=== PATIENT | male | born 1960 | race Caucasian/White ===

== ENCOUNTER 2018-11-21 15:55 | Emergency (ER) | payer MEDICAID ==
[2018-11-21] MEDS ORDERED: Sodium Chloride 0.9% 1,000 ML IV ONE (16:36)
--- NOTE | 2018-11-21 16:46 | ED Physician Chart ---
ED Chief Complaint/HPI - Patient Information Date Seen:: 11/21/18 Time Seen:: 16:25 Chief Complaint:: AMS History of Present Illness:: onset x one week of AMS, ALOC, H/As, and decreased activity; no report of trauma , neck pain, C/P, SOB, Abd. Pain, A/N/V/D/C, fever, chills, or urinary s/s Allergies:: Allergies Allergy/AdvReac Type Severity Reaction Status Date / Time No Known Allergies Allergy Verified 11/21/18 16:24 Vitals:: Vital Signs - 8 hr 11/21/18 16:25 Temp 98 F HR 86 RR 16 BP 131/78 O2 Sat % 97 Historian:: Patient, Friend Review:: Nurse's Note Reviewed, Old Chart Reviewed ED Review of Systems - Review of Systems General/Constitutional: No fever, No chills, No weight loss, No weakness, No diaphoresis, No edema, No loss of appetite Skin: No skin lesions, No rash, No bruising Head: No headache, No light-headedness Eyes: No loss of vision, No pain, No diplopia ENT: No earache, No nasal drainage, No sore throat, No tinnitus Neck: No neck pain, No swelling, No thyromegaly, No stiffness, No mass noted Cardio Vascular: No chest pain, No palpitations, No PND, No orthopnea, No edema Pulmonary: No SOB, No cough, No sputum, No wheezing GI: No nausea, No vomiting, No diarrhea, No pain, No melena, No hematochezia, No constipation, No hematemesis G/U: No dysuria, No frequency, No hematuria, No nacturia Musculoskeletal: No bone or joint pain, No back pain, No muscle pain Endocrine: No polyuria, No polydipsia Psychiatric: No prior psych history, No depression, No anxiety, No suicidal ideation, No homicidal ideation, No auditory hallucination, No visual hallucination Hematopoietic: No bruising, No lymphadenopathy Allergic/Immuno: No urticaria, No angioedema Neurological: No syncope, No focal symptoms, No weakness, No paresthesia, No headache, No seizure, No dizziness, No confusion, No vertigo ED Past Medical History - Past Medical History Obtainable: Yes Past Medical History: HTN Family History: HTN Social History: Non Smoker, No Alcohol, No Drug Use, Single Surgical History: None Psychiatricy History: None Medication: Reviewed Family Medical History - Family Member Mother History Unknown: Yes ED Physical Exam - Physical Examination General/Constitutional: Awake, Well-developed, well-nourished, Alert, No distress, GCS 15, Non-toxic appearing, Ambulatory Head: Atraumatic Eyes: Lids, conjuctiva normal, PERRL, EOMI Skin: Nl inspection, No rash, No skin lesions, No ecchymosis, Well hydrated, No lymphadenopathy ENMT: External ears, nose nl, Nasal exam nl, Lips, teeth, gums nl, Oropharynx nl , Tonsils nl Neck: Nontender, Full ROM w/o pain, No JVD, No nuchal rigidity, No bruit, No mass, No stridor Other Neck comments:: supple; no meningeal signs; no cervical tenderness; no bruits Respiratory: Nl effort/Exclusion, Clear to Auscultation, No Wheeze/Rhonchi/Rales Cardio Vascular: RRR, No murmur, gallop, rubs, NL S1 S2, Carotid/Femoral/Distal pulses equal bilaterally GI: No tenderness/rebounding/guarding, No organomegaly, No hernia, Normal BS's, Nondistended, No mass/bruits, No McBurney tenderness, Rectum exam nl Other GI comments:: no pulsatile masses; good BS : No CVA tenderness Extremities: No tenderness or effusion, Full ROM, normal strength in all extremities, No edema, Normal digits & nails Neuro/Psych: Alert/oriented, DTR's symmetric, Normal sensory exam, Normal motor strength, Judgement/insight normal, Mood normal, Normal gait, No focal deficits Other Neuro/Psych comments:: no focal signs Misc: Normal back, No paraspinal tenderness ED Labs/Radiology/EKG Results - Lab Results Comments:: Reviewed - Radiology Results Comments:: + 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 Is Septic Shock (SBP<90, OR Lactate>4 mmol\L) present?: No - <6hrs of presentation: Vital Signs: Vital Signs - 8 hr 11/21/18 16:25 Temp 98 F HR 86 RR 16 BP 131/78 O2 Sat % 97 ED Reassessment (Disposition) - Reassessment Reassessment:: pt chose to sign out AMA; pt is asymptomatic upon discharge/AMA Reassessment Condition:: Improved - Diagnosis Diagnosis:: AMS; ALOC- Resolved; Elevated Ammonia Level - Aftercare/Follow up Instructions Aftercare/Follow-Up Instructions:: Counseled pt regarding lab results/diagnosis & need follow up, Refer to Discharge Instructions, Counseled pt & family regarding lab results/diagnosis & need follow up Notes:: pt left AMA before all laboratory results were known - Patient Disposition Discharge/Transfer:: Against Medical Advice Condition at Disposition:: Stable, Improved (X-Rays Instructions; RTER prn if existing s/s reoccur and/or get worse and/or any other new s/s occur; ACIs given for all above Dx; Refer to Neurologist/[employer] LUDIVINA; F/U with PMD Today or prn; RTER prn if concerned)
[2018-11-21 17:46] LABS: % EOSINOPHILS 0.8 % (0.0-5.0); % LYMPHOCYTES 20.2 % (20.0-50.0); % MONOCYTES 6.8 % (2.0-10.0); % NEUTROPHILS 72.2 % (40.0-80.0); EOSINOPHILE ABSOLUTE 0.1 Th/cmm (0.1-0.4); HEMATOCRIT 48.7 % (41.0-60); HEMOGLOBIN 16.3 gm/dL (12-16); MEAN CELL VOLUME 94.5 fl (80-99); MEAN CORPUSCULAR HEMOGLOBIN 31.7 pg (26.0-30.0); MEAN CORPUSCULAR HGB CONC 33.6 pg (28.0-36.0); MEAN PLATELET VOLUME 8.8 fl; MONOCYTE ABSOLUTE 0.7 Th/cmm (0.3-1.0); NEUTROPHILE ABSOLUTE 7.3 Th/cmm (1.8-8.0); PLATELET COUNT 205 Th/cmm (150-400); RED BLOOD COUNT 5.15 Mil/cmm (4.30-5.70); RED CELL DISTRIBUTION WIDTH 12.6 % (11.5-20.0); WHITE BLOOD COUNT 10.1 Th/cmm (4.8-10.8)
[2018-11-21 17:54] LABS: ANION GAP 13.3 (7.0-16.0); BUN - UREA NITROGEN 13 mg/dL (7-25); CALCIUM SERUM 9.5 mg/dL (8.6-10.3); CARBON DIOXIDE 24.4 mEq/L (21.0-31.0); CHLORIDE 105 mEq/L (98-107); CREATININE - SERUM 0.8 mg/dL (0.7-1.3); GFR AFRICAN-AMERICAN > 60.0 ml/min (>90); GFR NON AFRICAN-AMERICAN > 60.0 ml/min; GLUCOSE 103 mg/dL (70-105); POTASSIUM SERUM 3.7 mEq/L (3.5-5.1); SODIUM SERUM 139 mEq/L (136-145)
[2018-11-21 18:15] LABS: TROP I < 0.01 ng/mL (0.01-0.05)
--- NOTE | 2018-11-22 08:29 | Diagnostic Imaging Report ---
Chest x-ray single view History: Pain Comparison: None The heart size is normal. No focal pulmonary parenchymal processes. No hilar or mediastinal abnormalities. Impression: No acute abnormalities
--- NOTE | 2018-11-22 09:05 | Diagnostic Imaging Report ---
Head CT without intravenous contrast Indication: Altered mental status Comparison: None Technique: Axial images were obtained from the vertex to the skull base without IV contrast. Coronal reconstructions were made. Total DLP: 756, CTDI 38.6 FINDINGS: Images of the brain obtained without contrast demonstrate no evidence of an acute hemorrhage. The ventricles and basal cisterns are patent. No mass effect or midline shift. Small focus of encephalomalacia of the anterior medial left frontal lobe is noted. No evidence of the skull fracture or focal soft tissue swelling. The visualized paranasal sinuses demonstrate mild mucosal thickening. IMPRESSION: No evidence of acute intracranial hemorrhage. Small focus of encephalomalacia of the anterior left frontal lobe medially which may be due to old small infarct or old trauma.
== END 2018-11-21 18:10 | disposition left against medical advice (07) ==
LOC: ER 15:55
DX: E72.20 Disorder of urea cycle metabolism, unspecified (principal); R41.82 Altered mental status, unspecified; I10 Essential (primary) hypertension
CPT/HCPCS: 36415-UA; 70450-TC; 71045-TC; 80048-TC; 80320-TC; 82010-TC; 82140-TC; 83605; 83690-TC; 84484-TC; 85025-TC; 93005

== ENCOUNTER 2019-01-13 11:04 | Emergency (ER) | payer MEDICAID | END 2019-01-13 11:06 | disposition left against medical advice (07) | LOC: ER 11:04 | DX: F32.9 Major depressive disorder, single episode, unspecified (principal); R63.0 Anorexia; Z53.21 Procedure and treatment not carried out due to patient leaving prior to being seen by health care provider ==